=== PATIENT | female | born 1965 | race Caucasian/White ===

== ENCOUNTER 2019-07-08 13:44 | Emergency (ER) | payer BC, SELFPAY ==
[2019-07-08 13:52] VITALS: BP 125/71; PULSE 80; RESP 16; TEMP 38.5; O2SAT 100
--- NOTE | 2019-07-08 14:07 | ED.URI ---
HPI - URI/Sore Throat General Chief Complaint: Upper Respiratory Infection Stated Complaint: flu test Time Seen by Provider: 07/08/19 14:08 Source: patient and RN notes reviewed History of Present Illness HPI Narrative: Patient is a 54-year-old female that presents to the urgent care with complaints of fever, body aches, headache. Patient is requesting a flu test because people at work were recently sick with the flu and she woke up last night with the symptoms. Patient states she also stayed out late last night at a bar. Patient denies any vomiting, nausea, sore throat. Patient states she is taking Excedrin for her headache. Patient also states that she had the shingles shot yesterday. No other acute complaints. No acute distress noted. Patient aware of the plan of care. Related Data Home Medications Medication Instructions Recorded Confirmed bupropion HCl 200 mg PO DAILY 07/08/19 07/08/19 buspirone 10 mg PO DAILY 07/08/19 07/08/19 Allergies Allergy/AdvReac Type Severity Reaction Status Date / Time Sulfa (Sulfonamide Allergy Severe Anaphylactic Verified 07/08/19 14:13 Antibiotics) Shock HYDROCODONE BIT AdvReac Intermediate Itching Uncoded 07/08/19 14:13 Review of Systems Review of Systems: Narrative: CONSTITUTIONAL: Reports a fever EYES: Denies visual changes, redness, or discharge. ENT: Denies rhinorrhea, congestion, sore throat, or otalgia. CARDIOVASCULAR: Denies chest pain, palpitations, or edema. RESPIRATORY: Denies cough or dyspnea. GASTROINTESTINAL: Denies abdominal pain, nausea, vomiting, or diarrhea. GENITOURINARY: Denies dysuria or hematuria. SKIN: Denies rash or itching. MUSCULOSKELETAL: Denies back pain, joint pain; reports of body aches NEUROLOGIC: Reports of headache All other systems reviewed are negative, except as documented in HPI. PMFSH Comments At the time of my signature, I reviewed and agree with the nursing past medical, surgical, social, and family history. There is no relevant family history pertinent to the patient complaint. Exam Narrative: Exam Narrative: GENERAL: This is a well-nourished, well-developed patient, appears slightly fatigued HEAD: normocephalic, atraumatic. EYES: PERRL. Sclera clear/white. Vision is grossly intact. EARS: External ears normal, auditory canals clear and without drainage, TMs normal without perforation. Hearing grossly intact. NOSE: External nose normal with no obvious nasal discharge, nares without redness, no rhinorrhea. THROAT: Mucous membranes moist, posterior pharynx clear. Mild postnasal drainage NECK: Neck supple CARDIOVASCULAR: Regular rate and rhythm without murmurs, gallops, or rubs. RESPIRATORY: Clear to auscultation. Breath sounds equal bilaterally. No wheezes, rales, or rhonchi. SKIN: warm, intact with no suspicious lesions or rash, good texture and turgor. NEURO: awake, alert, and oriented to person, place and time. There were no obvious focal neurologic abnormalities. EXTREMITIES: No clubbing, cyanosis, or edema. Course Vital Signs Vital signs: Vital Signs Temperature 101.3 F H 07/08/19 13:52 Pulse Rate 80 07/08/19 13:52 Respiratory Rate 16 07/08/19 13:52 Blood Pressure 125/71 07/08/19 13:52 Pulse Oximetry 100 07/08/19 13:52 Temperature 101.3 F H 07/08/19 13:52 Pulse Rate 80 07/08/19 13:52 Respiratory Rate 16 07/08/19 13:52 Blood Pressure 125/71 07/08/19 13:52 Pulse Oximetry 100 07/08/19 13:52 Reviewed MDM - URI/Sore Throat MDM Narrative Medical decision making narrative: Reviewed lab results with the patient. She is aware that flu swab was negative. Advised patient to treat symptoms with [id number] medication as needed. Increase fluids and rest. Use humidifier at night. Follow-up with PCP within 2 to 5 days if worsening symptoms or failure to improve. Differential Diagnosis Differential diagnosis: Likely upper respiratory infection, otitis media, sinusitis, bronchitis, influenza and pharyn
== END 2019-07-08 14:35 | disposition home or self-care (01) ==
PROVIDERS: Emergency Provider Nurse Practitioner Family
DX: B34.9 Viral infection, unspecified (principal); F41.9 Anxiety disorder, unspecified
CPT/HCPCS: 87804; 99212; G0463

== ENCOUNTER 2023-09-11 13:30 | Emergency (ER) | payer SELFPAY ==
[2023-09-11 13:32] VITALS: BP 152/79; PULSE 85; RESP 20; TEMP 36.9; O2SAT 100
--- NOTE | 2023-09-11 14:56 | PC.NURSE ---
patient walked out without difficulty and in no distress. Reports that they would rather go to express care.
== END 2023-09-11 15:32 | disposition left against medical advice (07) ==
LOC: ANHED 15:03
PROVIDERS: PCP Internal Medicine Infectious Disease
DX: S39.92XA Unspecified injury of lower back, initial encounter (principal)
CPT/HCPCS: 99199

== ENCOUNTER 2023-09-11 15:02 | Emergency (ER) | payer BC, SELFPAY ==
--- NOTE | ~2023-09-11 | XR_ITS ---
EXAMINATION: XR sacrum coccyx min 2V DATE: 09/11/2023 15:47 INDICATION: Coccygeal pain. Fall. TECHNIQUE: 3 views of the sacrum and coccyx were obtained. COMPARISON: None. FINDINGS: Bone alignment is normal. No fracture. There is mild lumbar spondylosis. There is mild oste oarthritis of the sacroiliac joints. IMPRESSION: 1. No fracture. Reviewed, dictated and finalized at location E. IMPRESSION: 1. No fracture.
[2023-09-11 15:20] VITALS: BP 142/90; PULSE 82; RESP 18; TEMP 37.1; O2SAT 99
[2023-09-11 15:22] VITALS: BP 142/90; PULSE 82; RESP 18; TEMP 37.1; O2SAT 99
--- NOTE | 2023-09-11 15:37 | ED.EXTPRO ---
HPI - Extremity Problem General Chief complaint: Extremity Problem,Nontraumatic Stated complaint: fall Source: patient Mode of arrival: ambulatory Limitations: no limitations History of Present Illness HPI Narrative: 58-year-old female [facility] complaints of pain to her coccyx region after falling today at 11:00 a.m.. Patient reports that she was at the [facility] when a child was placed behind her causing her to fall landing on her buttocks. Patient reports that she has had pain to her coccyx region since. Patient has been taking [id number] ibuprofen with minimal relief. Patient denies hitting her head, loss of conscious, fever, body aches, chills, nausea vomiting or diarrhea. MD Complaint: other (Coccyx pain) Onset (ago): hour(s) (4) Associated symptoms: denies other symptoms Related Data Home Medications Medication Instructions Recorded Confirmed bupropion HCl 200 mg tablet,12 hr 200 mg PO DAILY 07/08/19 09/11/23 sustained-release buspirone 10 mg tablet 10 mg PO DAILY 07/08/19 09/11/23 Allergies Allergy/AdvReac Type Severity Reaction Status Date / Time Sulfa (Sulfonamide Allergy Severe Anaphylactic Verified 09/11/23 15:21 Antibiotics) Shock HYDROCODONE BIT AdvReac Intermediate Itching Uncoded 09/11/23 15:21 Review of Systems Constitutional: Constitutional: Denies chills, Denies fatigue, Denies fever(s) and Denies weakness ENT: Denies vertigo, Denies dizziness, Denies epistaxis and Denies nasal congestion Cardiovascular: Cardiovascular: Denies chest pain Respiratory: Respiratory: Denies cough, Denies dyspnea and Denies wheezing Gastrointestinal: Gastrointestinal: Denies diarrhea, Denies nausea and Denies vomiting Musculoskeletal: Comments: Coccyx pain Integumentary/Breasts: Skin/Breast: Denies rash PMFSH Comments At time of signature, I agree with nursing past medical, surgical, social and family history. There is no relevant family history pertinent to the presenting complaint. Exam Const: General: healthy appearing and no acute distress Nutritional Appearance: well nourished Orientation/consciousness: patient oriented x3 Limitations: no limitations HENMT: Head: normal to inspection Eyes: Conjunctivae: conjunctivae normal Neck: Neck: normal visual inspection Chest: Chest palpation & inspection: normal inspection of the chest Resp: Effort & Inspection: normal respiratory effort and not labored Auscultation: clear to auscultation bilaterally, no crackles and no rales Cardio: Rate: regular rate Rhythm: regular rhythm Heart sounds: no murmurs Skin: General skin exam: normal color Rashes: no rashes Wounds: no wounds Neuro: General: patient oriented x3 and moves all extremities Speech: normal speech Gait exam (Neuro): Normal gait present Extrem: General: normal to inspection Other: No swelling or bruising noted to buttocks. There is mild pain noted to buttocks with palpation. Psych: Affect: normal affect Attitude: cooperative Course Course Level of Care: Express Care Visit Vital Signs Vital signs: Vital Signs Temperature 37.1 C 09/11/23 15:20 Pulse Rate 82 09/11/23 15:20 Respiratory Rate 18 09/11/23 15:20 Blood Pressure 142/90 H 09/11/23 15:20 Pulse Oximetry 99 09/11/23 15:20 Oxygen Delivery Room Air 09/11/23 15:20 Temperature 37.1 C 09/11/23 15:22 Pulse Rate 82 09/11/23 15:22 Respiratory Rate 18 09/11/23 15:22 Blood Pressure 142/90 H 09/11/23 15:22 Pulse Oximetry 99 09/11/23 15:22 Oxygen Delivery Room Air 09/11/23 15:22 MDM - Extremity (Nontraumatic) MDM Narrative Medical decision making narrative: Discussed negative x-ray results with patient. Rice therapy discussed with patient. Patient is to follow up with primary care provider if symptoms not improved in next 48-72 hours. Differential Diagnosis Differential diagnosis: Likely cellulitis and other (Contusion, fracture)
== END 2023-09-11 16:19 | disposition home or self-care (01) ==
PROVIDERS: Emergency Provider Nurse Practitioner Family; PCP Internal Medicine Infectious Disease
DX: R52 Pain, unspecified (principal); F41.9 Anxiety disorder, unspecified
CPT/HCPCS: 72220; 99212; G0463

== ENCOUNTER 2023-12-01 08:53 | Emergency (ER) | payer BC, SELFPAY ==
--- NOTE | 2023-12-01 08:56 | ED.FEMALEGU ---
HPI - Female Genitourinary General Chief complaint: Urogenital-Female Stated complaint: Uti Symptoms Time Seen by Provider: 12/01/23 08:55 Source: patient Mode of arrival: ambulatory Limitations: no limitations History of Present Illness HPI Narrative: Jolene is a 58-year-old female patient presenting to the clinic today with complaints of possible urinary tract infection. She reports she is having bladder pain started on Wednesday. Denies any fever, chills, or body aches. Denies any flank pain or abdominal pain. States pain and pressure over the bladder. Denies any incontinence. Related Data Home Medications Medication Instructions Recorded Confirmed bupropion HCl 200 mg tablet,12 hr 200 mg PO DAILY 07/08/19 12/01/23 sustained-release buspirone 10 mg tablet 10 mg PO DAILY 07/08/19 12/01/23 azelastine 137 mcg (0.1 %) nasal 137 mcg intranasal DIRECTED 12/01/23 12/01/23 spray valacyclovir 500 mg tablet 500 mg PO DAILY 12/01/23 12/01/23 Allergies Allergy/AdvReac Type Severity Reaction Status Date / Time Sulfa (Sulfonamide Allergy Severe Anaphylactic Verified 12/01/23 08:58 Antibiotics) Shock hydrocodone Allergy Itching Verified 12/01/23 08:58 Review of Systems Review of Systems: Pertinent positives per HPI. Patient denies any fever, chills, rash, headache, visual changes, dizziness, cough, runny nose, sore throat, shortness of breath, chest pain, palpitations, nausea, vomiting, diarrhea, constipation, abdominal pain. PMFSH Comments At the time of my signature, I reviewed and agree with the nursing past medical, surgical, social, and family history. There is no relevant family history pertinent to the patient complaint. Exam Narrative: General: Well-developed, well nourished, in no apparent distress. Head: Normocephalic, atraumatic. Cardio: Regular rate and rhythm, s1 and s2 normal, no murmur appreciated. Resp: Clear to auscultation bilaterally, no rhonchi, rales, wheezing or rubs. Abdomen: Soft, pliable, bowel sounds present in all quadrants, tender to palpation over the urinary bladder, no organomegly, no CVAT tenderness. Course Course Emergency Course: Portions of this record may have been created with voice recognition software. Level of Care: Express Care Visit Vital Signs Vital signs: Vital signs reviewed MDM - Female Genitourinary MDM Narrative Medical decision making narrative: At the time of visit patient is resting comfortably on the exam table. Patient appears to be nontoxic. Labs: UA dip was performed. Urinalysis shows 3+ blood and trace of protein. We will send for culture. Plan: I suspect patient has cystitis but cannot rule out bladder mass. Prescription for Pyridium was sent to the pharmacy. Recommend follow-up with PCP for further evaluation if symptoms persist-may need labs and renal/bladder ultrasound to rule out mass. Supportive measures were discussed with the patient and they voiced understanding discharge instructions and agrees to treatment plan. Return precautions reviewed Differential Diagnosis Differential diagnosis: Likely urinary tract infection (Bladder mass) and cystitis Discharge Plan Discharge Clinical Impression: Cystitis Patient Disposition: Home, Self-Care Condition: Stable Instructions: Antibiotic Form, Pelvic Pain in Women (ED) Additional Instructions: Urinalysis shows 3+ blood and a trace of protein.-I suspect you have cystitis. We will send urine for culture. If comes back positive for urinary tract infection we will send an antibiotic prescription at that time. Take Pyridium as prescribed If symptoms persist recommend follow-up with your primary care doctor for further evaluation-labs and bladder/renal ultrasound Increase fluids and stay well hydrated Wipe front to back. May use wet wipes. Avoid tub baths If sexually active- pee before and after intercourse. Wear cotton panties Avoid tight clothing up agai
[2023-12-01 09:06] VITALS: BP 97/66; PULSE 71; RESP 16; TEMP 37.1; O2SAT 98
[2023-12-01 09:13] LABS: EDUAAPPEAR Clear; EDUABILI Negative; EDUABLOOD 3+; EDUACOLOR1 Yellow; EDUAGLUCOSE Negative; EDUAKETONE Negative; EDUALEUKO Negative; EDUANITRATE Negative; EDUAPH 6.5; EDUAPROTEIN Trace; EDUASPGRAVITY 1.015; EDUAUROBILI 0.2
== END 2023-12-01 09:17 | disposition home or self-care (01) ==
PROVIDERS: Emergency Provider Nurse Practitioner Family
DX: N30.90 Cystitis, unspecified without hematuria (principal); F41.9 Anxiety disorder, unspecified
CPT/HCPCS: 81003; 87086; 87088; 99213; G0463